=== PATIENT | female | born 1945 | race Caucasian/White ===

== ENCOUNTER → 2016-10-22 | Outpatient (CLI) | payer MEDICARE, BC | LOC: MAMMO 08:11 | DX: Z12.31 Encounter for screening mammogram for malignant neoplasm of breast (principal) | CPT/HCPCS: G0202 ==

== ENCOUNTER → 2016-10-22 | Outpatient (CLI) | payer MEDICARE, BC | LOC: RAD 08:12 | DX: Z13.820 Encounter for screening for osteoporosis (principal); M85.80 Other specified disorders of bone density and structure, unspecified site ==

== ENCOUNTER 2018-02-09 14:57 | Outpatient (CLI) | payer MEDICARE, BC | END 2018-02-17 | LOC: CANPRECLI → MAMMO 02-17 14:29 | DX: Z12.31 Encounter for screening mammogram for malignant neoplasm of breast (principal) ==

== ENCOUNTER → 2018-02-17 | Outpatient (CLI) | payer MEDICARE, BC | LOC: RAD 14:28 → MAMMO 14:28 | DX: Z12.31 Encounter for screening mammogram for malignant neoplasm of breast (principal) ==

== ENCOUNTER → 2021-01-31 | Outpatient (CLI) | payer MEDICARE, BC | LOC: MAMMO 12:57 | DX: Z12.31 Encounter for screening mammogram for malignant neoplasm of breast (principal) ==